=== PATIENT | female | born 1965 | race Caucasian/White ===

== ENCOUNTER 2018-07-12 10:08 | Outpatient (REF) | payer SELFPAY ==
--- NOTE | 2018-07-12 09:00 | PAPFT_PTH ---
PATIENT: Melvi Odom LOC: [facility] U#:[id number] AGE/SX: 53/F ROOM: RE07/12/[address]: Gina Arevalo APRN : 1965 BED: DIS: 07/12/2018 SPEC #: [id number] RECD: 07/12/18 12:36 STATUS: FILIPE LARSEN #: [id number] ANTHONY: 07/12/18 09:[address]: Gina Arevalo DEPT: [facility] Cytology RECD BY: Mercedes Ayala Tissues: 1 - CX/ENDOCX FOR PAP SMEARS Procedures: PAP THIN PREP/[facility] Screening HPV DNA PROBE Comments: [id number]
== END 2018-07-12 10:28 ==
LOC: NCHCN 10:08
DX: Z12.4 Encounter for screening for malignant neoplasm of cervix (principal); Z11.51 Encounter for screening for human papillomavirus (HPV)
CPT/HCPCS: 88142; 87624

== ENCOUNTER 2023-04-11 08:54 | Outpatient (REF) | payer SELFPAY ==
--- NOTE | 2023-04-11 08:00 | PAPFT_PTH ---
PATIENT: Melvi Odom LOC: N U#:[id number] AGE/SX: 58/F ROOM: RE04/11/[address]: Alex Elena DNP : 1965 BED: DIS: 04/11/2023 SPEC #: [id number] RECD: 04/11/23 12:59 STATUS: FILIPE RETomasa #: [id number] ANTHONY: 04/11/23 08:[address]: Alex Mcneil DEPT: [facility] Cytology RECD BY: Mercedes Ayala Tissues: 1 - CX/ENDOCX FOR PAP SMEARS Procedures: PAP THIN PREP/[facility] Screening HPV DNA PROBE Comments: [id number]
== END 2023-04-11 08:55 | disposition home or self-care (01) ==
LOC: LBN 08:54
PROVIDERS: PCP Nurse Practitioner Family; Referring Provider Nurse Practitioner Family; Visit Provider Nurse Practitioner Family
DX: Z12.4 Encounter for screening for malignant neoplasm of cervix (principal); Z11.51 Encounter for screening for human papillomavirus (HPV)
CPT/HCPCS: 88142; 87624